=== PATIENT | male | born 1945 | race Caucasian/White ===

== ENCOUNTER 2016-11-06 13:42 | Emergency (ER) | payer OTHER ==
--- NOTE | 2016-11-06 13:59 | EDPHY ---
H & P Time Seen by Provider: 11/06/16 13:51 HPI/ROS: CHIEF COMPLAINT: Tailbone/Low back pain HISTORY OF PRESENT ILLNESS: The patient is a 71-year-old male who presents to the emergency department with tailbone pain. The patient was working yesterday when he was pulling on object. He fell backwards directly onto his buttocks. He now has pain in the mid lower back around his tailbone. It is 7/10. It radiates to both sides of his lower back. He states he has some mild burning sensation is bilateral lower extremities. He has no weakness or numbness. No incontinence of urine or stool. REVIEW OF SYSTEMS: My complete review of systems is negative except as mentioned in the HPI. Past Medical/Surgical History: Includes GERD, hypertension, high cholesterol Past surgical history: Negative Social history: Patient does not smoke Physical Exam: Vitals noted GENERAL: No acute distress, alert. HEENT: Eyes normal to inspection, normal pharynx, no signs of dehydration. NECK: No thyromegaly, no lymphadenopathy, supple. No spinal tenderness palpation. Mild right lateral neck mild TTP. No midline TTP. NEXUS negative. RESPIRATORY: Clear to auscultation bilaterally, no rales, rhonchi or wheezing. CVS: Regular rate and rhythm, no rubs, murmurs, or gallops. ABDOMEN: Soft, nontender, nondistended, no organomegaly. BACK: Normal to inspection, no CVA tenderness. Patient has mild tenderness to palpation over his lower sacral spine and coccyx. SKIN: Normal color, no rash, warm, dry. No pallor. EXTREMITIES: No pedal edema, no calf tenderness, no Homans sign or cords, no joint swelling. NEURO/PSYCH: Alert and oriented x3, normal mood and affect, normal motor sensory exam. Constitutional: Initial Vital Signs Temperature (C) 37.2 C 11/06/16 13:59 Heart Rate 65 11/06/16 13:59 Respiratory Rate 18 11/06/16 13:59 Blood Pressure 157/71 H 11/06/16 13:59 O2 Sat (%) 95 11/06/16 13:59 O2 Delivery Mode Room Air Allergies/Adverse Reactions: No Known Allergies Allergy (Unverified 11/06/16 13:58) Home Medications: Medication Instructions Recorded Cholestrol 11/06/16 High Blood Pressure 11/06/16 Hydrocodone/APAP 5/325 [[place] 1 - 2 tab PO Q4 #13 tab 11/06/16 5/325 (RX)] Medical Decision Making - Diagnostics Imaging Results: Imaging Impressions Sacrum and Coccyx X-Ray 11/06/16 13:58 Impression: Probable minimally displaced sacral fracture. ED Course/Re-evaluation: A healthcare interpreter was used for all interactions. In the emergency department I discussed possible etiologies with the patient. Patient consented to an x-ray. Sacral coccyx xray: The patient has a mildly displaced fracture of his sacrum. Please refer the dictated report by Dr. Zavala. I discussed the case with Dr. Olivera's office. They will arrange close follow -up. I discussed the results with the patient. I answered all his questions. I gave him warnings. Of note, the patient has no rectal bleeding or pain with defecation. He was given follow-up with both workman's Comp as well as Orthopedics. Differential Diagnosis: My differential includes but is not limited to fracture, dislocation, contusion , perforation, disc herniation, epidural hematoma Departure - Departure Disposition: Home, Routine, Self-Care Clinical Impression: Sacral fracture, closed Qualifiers: Encounter type: initial encounter Fracture alignment: minimally displaced Condition: Good Instructions: Sacral Fracture (ED) Additional Instructions: You have a small mildly displaced fracture of your sacrum. You need close follow up with orthopedics. You have been given follow up information. You also need to follow up with workman's comp. Referrals: Sarkis Olivera MD [Medical Doctor] - 5-7 days, call for appt. Work Comp Ref/[facility] [Outside] - As per Instructions Stand Alone Forms: Work Comp Follow Up Prescriptions: Hydrocodone/APAP 5/325 [[place] 5/325 (RX)] 1 - 2 tab PO Q4 #13 tab
[2016-11-06 14:02] VITALS: TEMP 99
[2016-11-06 15:32] VITALS: BP 147/71; PULSE 63; RESP 16; O2SAT 96
== END 2016-11-06 15:15 | disposition home or self-care (01) ==
LOC: CED 13:42
DX: S32.10XA Unspecified fracture of sacrum, initial encounter for closed fracture (principal); I10 Essential (primary) hypertension; W19.XXXA Unspecified fall, initial encounter; Y99.0 Civilian activity done for income or pay
CPT/HCPCS: 72220-PO

== ENCOUNTER 2017-01-14 10:42 | Emergency (ER) | payer OTHER ==
[2017-01-14 10:58] VITALS: BP 155/79; PULSE 70; RESP 16; TEMP 98.6; O2SAT 97
--- NOTE | 2017-01-14 11:08 | EDPHY ---
H & P Stated Complaint: L FOOT PAIN AND SWELLING Time Seen by Provider: 01/14/17 10:52 HPI/ROS: Chief Complaint: Left foot pain HPI: 72-year-old male presenting with 6 days of left foot pain and swelling. He has a history of an injury that foot 2 years ago but has not had pain since. Did not have a fracture at that time. Has had swelling and warmth primarily at the base of his big toe. Does not have a history of gout. No fevers or chills. It is a little bit warm to touch. He has been taking hydrocodone with some relief. No injuries at this time. ROS: 10 point Review of Systems is negative except as noted in the HPI. PMH: Hypertension Social History: [No] smoking, occasional alcohol, [ no recreational drug use] Family History: [non-contributory] Physical Exam: General: Awake, alert, no acute distress Left foot: He has got tenderness and swelling at his 1st MTP joint. There is none no significant erythema. Is very mildly warm to the touch. Has tenderness at the joint. No bony tenderness. No deformity. Sensations intact. Skin: No rash - Personal History Current Tetanus Diphtheria and Acellular Pertussis (TDAP): Yes - Medical/Surgical History Hx Asthma: No Hx Chronic Respiratory Disease: No Hx Diabetes: No Hx Cardiac Disease: No Hx Renal Disease: No Hx Cirrhosis: No Hx HIV/AIDS: No Hx Splenectomy or Spleen Trauma: No Other PMH: high cholestrol, high blood pressure, GERD - Social History Smoking Status: Former smoker Constitutional: Initial Vital Signs Temperature (C) 37.0 C 01/14/17 10:56 Heart Rate 70 01/14/17 10:56 Respiratory Rate 16 01/14/17 10:56 Blood Pressure 155/79 H 01/14/17 10:56 O2 Sat (%) 97 01/14/17 10:56 O2 Delivery Mode Room Air Allergies/Adverse Reactions: No Known Allergies Allergy (Unverified 11/06/16 13:58) Home Medications: Medication Instructions Recorded Cholestrol 11/06/16 High Blood Pressure 11/06/16 Hydrocodone/APAP 5/325 [[place] 1 - 2 tab PO Q4 #13 tab 11/06/16 5/325 (RX)] Colchicine 0.6 mg PO QID #10 capsule 01/14/17 Ibuprofen 800 mg PO TID PRN #20 tablet 01/14/17 Medical Decision Making - Diagnostics Imaging Results: Imaging Impressions Foot X-Ray 01/14/17 11:06 Impression: 1. Diffuse soft tissue swelling 2. Minimal degenerative change of the 1st metatarsophalangeal joint. Imaging: I viewed and interpreted images myself Departure - Departure Disposition: Home, Routine, Self-Care Clinical Impression: Gout Condition: Good Instructions: Gout (ED) Additional Instructions: Follow up with primary care physician in 3-4 days for re-evaluation. Return to the emergency depart for increasing pain, fevers, chills, worsening redness, or any other concerns. Referrals: NONE *PRIMARY CARE P,. [Primary Care Provider] - As per Instructions Prescriptions: Colchicine 0.6 mg PO QID #10 capsule Ibuprofen 800 mg PO TID PRN #20 tablet PRN Reason: Pain, Moderate
== END 2017-01-14 11:53 | disposition home or self-care (01) ==
LOC: CED 10:42
DX: M10.9 Gout, unspecified (principal); I10 Essential (primary) hypertension; Z87.891 Personal history of nicotine dependence
CPT/HCPCS: 73630-PO

== ENCOUNTER → 2017-03-03 | Outpatient (CLI) | payer OTHER | LOC: CIMAGING 09:00 | PROVIDERS: ATTEND Physical Medicine & Rehabilitation | DX: R07.9 Chest pain, unspecified (principal) | CPT/HCPCS: 71100-PO ==